=== PATIENT | female | born 1945 | race Caucasian/White ===

== ENCOUNTER 2022-05-11 17:13 | Emergency (ER) | payer MEDICARE, OTHER, SELFPAY ==
[2022-05-11 17:20] VITALS: BP 166/88; PULSE 98; RESP 18; TEMP 36.2; O2SAT 96
--- NOTE | 2022-05-11 17:24 | CRLHL7_ITS ---
For Patients: As a result of the Century Cures Act, medical imaging exams and procedure reports are released immediately into your electronic medical record. You may view this report before your referring provider. If you have questions, please contact your health care provider. INDICATION: Fall. TECHNIQUE: CT of the head without contrast. Coronal and sagittal reformats are included. COMPARISON: None. FINDINGS: Lenticular shaped extra-axial collection along the right frontal convexity which is isodense compared to adjacent brain parenchyma with the exception of a few curvilinear hyperdense foci anteriorly. It measures up to 20 millimeters in coronal diameter and 86 millimeters in AP diameter. It does appear to cross the right coronal suture line. Local mass effect deformity of the adjacent right frontal lobe. No significant midline shift. No intracranial hemorrhage elsewhere. No hydrocephalus. Small chronic lacunar infarct left anterior basal ganglia. Scattered white matter hypoattenuation, typical for chronic microvascular ischemic changes. No acute osseous abnormalities. Mastoid air cells and paranasal sinuses are clear. Bilateral TMJ arthrosis. Small left parietal scalp hematoma. IMPRESSION: 1. Relatively large lenticular shaped extra-axial collection along the right frontal convexity measuring up to 20 millimeters in coronal diameter. The shape is typical for an epidural hematoma, although it does cross the coronal suture line, so a subdural hematoma is not excluded. The hematoma may be isodense compared to adjacent brain despite being acute if the patient has a blood clotting disorder or is actively bleeding. Neurosurgical consultation is recommended. 2. No calvarial fractures. 3. Left parietal scalp hematoma in keeping with a contrecoup injury. Please note that all CT scans at this facility use dose modulation, iterative reconstruction, and/or weight-based dosing when appropriate to reduce radiation dose to as low as reasonably achievable. Dictated by Irving Wong MD @ 05/11/2022 6:06:45 PM (Electronically Signed)
--- NOTE | 2022-05-11 17:25 | ED_ITS ---
HPI - General Adult General Time Seen by Provider: 17:25 Date Seen: 05/11/22 Chief complaint: Head Injury/Pain Stated complaint: HIT HEAD ON CONCRETE,FELL Time Seen by Provider: 05/11/22 17:18 Source: patient Mode of arrival: ambulatory Limitations: no limitations History of Present Illness HPI narrative: Patient a 76 year white female currently not on any blood thinners who slipped and fell on the edge of a parking lot. It was a tar type parking lot. She landed on the left parietal area of her head, she has no neck pain, no nausea, no loss conscious, no headache of significance. She had a small bump on the left parietal area junction with occipital area on the left scalp and a slight abrasion that is gone down slightly. No neck pain as mention no back pain no neurologic complaints. No vomiting, no loss conscious as mention. Patient presents to ED for just evaluation issues concerned that she fell. Related Data Home Medications Medication Instructions Recorded Confirmed atorvastatin 20 mg tablet mg 05/11/22 levothyroxine 112 mcg tablet mcg 05/11/22 losartan 100 mg tablet mg 05/11/22 sertraline 50 mg tablet mg 05/11/22 Allergies Allergy/AdvReac Type Severity Reaction Status Date / Time Sulfa (Sulfonamide Allergy Mild Verified 05/11/22 17:26 Antibiotics) Review of Systems Status of ROS: Reports: 6 or more systems reviewed and unremarkable except as noted in History and below [facility] Social History Smoking Status: Never smoker How often do you have a drink containing alcohol: never AUDIT-C Alcohol total score: 0 Non-prescribed substance use: denies use Exam Narrative: Exam Narrative: Objective: Vital signs unremarkable other than slightly elevated systolic pressure Alert orient x3, noncyanotic HEENT shows a small superficial abrasion on the left occipital parietal junction, no palpable step-off, no no marked tenderness Neck is supple, no midline tenderness Chest back abdomen upper lower extremities unremarkable, patient ambulatory. Const: Vital Signs, click to edit/add: Vital Signs - 24 hr 05/11/22 17:20 Temperature 97.1 F L Pulse Rate [Pulse Oximeter] 98 Respiratory Rate 18 Blood Pressure [Ri ght Upper Arm] 166/88 H Pulse Oximetry 96 Course Course Hospital Course: Because of the patient's age in fall, I think a CT scan of the head would be reasonable to rule out intracranial bleeding Vital Signs Vital signs: Initial Vital Signs Temperature 97.1 F L 05/11/22 17:20 Temperature Source Temporal Artery Scan 05/11/22 17:20 Pulse Rate 98 05/11/22 17:20 Respiratory Rate 18 05/11/22 17:20 Blood Pressure 166/88 H 05/11/22 17:20 Blood Pressure Mean 114 05/11/22 17:20 Blood Pressure Position Supine 05/11/22 17:20 Pulse Oximetry 96 05/11/22 17:20 Oxygen Delivery Method 05/11/22 17:20 Vital Signs Temperature 97.1 F L 05/11/22 17:20 Pulse Rate 98 05/11/22 17:20 Respiratory Rate 18 05/11/22 17:20 Blood Pressure 166/88 H 05/11/22 17:20 Pulse Oximetry 96 05/11/22 17:20 Temperature 97.1 F L 05/11/22 17:20 Pulse Rate 98 05/11/22 17:20 Respiratory Rate 18 05/11/22 17:20 Blood Pressure 166/88 H 05/11/22 17:20 Pulse Oximetry 96 05/11/22 17:20 Medical Decision Making MDM Narrative Medical decision making narrative: Given the patient's age common her fall in the left occipital parietal area will do a CT scan of the head to rule out any intracranial injury or bleeding. Will not do neck as her neck appears unremarkable. Neurologically she is nonfocal so I am not too concerned but I think we should exclude intracranial injury. Addendum: The patient has a relatively large lenticular shaped extra-axial collection right frontal convexity typical for either an epidural but more likely a subdural hematoma. [facility] in transfer. Transfer orders have been completed transfer sheets completed patient is in stable condition. Dr. Sharon PRIETO ALL has accepted in transfer. Family was in agreement with transfer and understands the benefit of being monitor with neuro surgery with a [employer] bleed. Critical Care Time Critical Care Time Total Critical Care Time in Minutes: 75 Discharge Plan Discharge Clinical Impression: Closed head injury, Acute subdural hematoma Patient Disposition: Xfer Other Condition: Stable Additional Instructions: Patient will be transferred to [facility] for neurosurgery consultation Activity Level: Light activity Discharge Diet: Regular Prescriptions: No Action atorvastatin 20 mg tablet 0RF losartan 100 mg tablet 0RF sertraline 50 mg tablet 0RF levothyroxine 112 mcg tablet 0RF Stand Alone Forms: [facility] Info Instructions
--- NOTE | 2022-05-11 18:19 | ED.NURSE ---
[facility] to discuss transfer
--- NOTE | 2022-05-11 18:24 | ED.NURSE ---
Accepted to [facility]. EMS called for transport. May need to wait for 1900 truck to start
[2022-05-11] MEDS: 0.9 % SODIUM CHLORIDE 500 ML 500 ML IV (18:32)
[2022-05-11 18:33] LABS: Basophils Absolute Auto 0.02 K/uL (0.00-0.30); Basophils Percent Auto 0.2 % (0.0-3.0); Eosinophils Absolute Auto 0.12 K/uL (0.00-0.50); Eosinophils Percent Auto 1.3 % (0.0-7.0); Hematocrit 43.4 % (33.0-51.0); Hemoglobin* 14.8 gm/dL (12.0-16.0); Immature Granulocytes Abs Auto 0.02 K/uL (0.00-0.30); Lymphocytes Absolute Auto 2.13 K/uL (0.90-2.90); Lymphocytes Percent Auto 22.5 % (20-44); Mean Corpuscular HGB Conc 34 gm/dL (32-36); Mean Corpuscular Hemoglobin 29 pg (26-34); Mean Corpuscular Volume 86 fL (80-100); Monocytes Percent Auto 7.5 % (0.0-11.0); Neutrophils Absolute Auto 6.47 K/uL (1.7-7.0); Neutrophils Percent Auto 68.3 % (42.0-72.0); Platelet Count* 188 K/uL (140-440); Red Blood Count 5.03 m/uL (4.00-5.20); White Blood Count* 9.47 K/uL (4.50-11.00)
[2022-05-11 18:35] VITALS: BP 159/81; PULSE 84; RESP 18; O2SAT 94
[2022-05-11 18:36] LABS: Slide Review Reflex No
[2022-05-11 18:45] LABS: Chloride* 105 mmol/L (96-114); Potassium* 4.4 mmol/L (3.6-5.1); Sodium* 139 mmol/L (135-149)
[2022-05-11 18:48] LABS: Blood Urea Nitrogen* 29 mg/dL (7-30); Carbon Dioxide* 25 mmol/L (20-32); Est. Creatinine Clearance* 42.39; Estimated Glomerular Filt Rate 58 ml/min
[2022-05-11 18:49] LABS: Calcium* 9.6 mg/dL (8.4-10.6); Glucose* 137 mg/dL (60-115)
[2022-05-11 18:51] LABS: INR 1.01 (0.91-1.10); Prothrombin Time 13.7 Seconds
[2022-05-11 18:52] LABS: Partial Thromboplastin Time* 27 Seconds (23-33)
--- NOTE | 2022-05-11 18:59 | ED.NURSE ---
pt transferred to [facility] via [facility]. report called to [facility] ED
== END 2022-05-11 19:02 | disposition other institution (70) ==
PROVIDERS: Emergency Provider Family Medicine
DX: S06.5X0A Traumatic subdural hemorrhage without loss of consciousness, initial encounter (principal); W01.10XA Fall on same level from slipping, tripping and stumbling with subsequent striking against unspecified object, initial encounter
CPT/HCPCS: 36415; 70450; 80048; 85025; 85610; 85730; 99284; 99285; 99291; 99292; J7120

== ENCOUNTER 2022-05-11 18:48 | Outpatient (CLI) | payer MEDICARE, OTHER, SELFPAY | END 2022-05-11 18:49 | disposition home or self-care (01) | LOC: AMB 05-28 21:14 | PROVIDERS: Visit Provider Family Medicine | DX: S06.5X0S Traumatic subdural hemorrhage without loss of consciousness, sequela (principal) | CPT/HCPCS: A0425; A0427 ==